=== PATIENT | male | born 1945 | race Caucasian/White ===

== ENCOUNTER 2017-10-22 10:50 | Day surgery (SDC) | payer MEDICARE ==
[~2017-10-22] VITALS: Ht 188 cm; Wt 68.6 kg
[~2017-10-22 10:50] MED LIST: ATOR20TA PO; CARV3.122 PO; GABA-532 PO; HYDR-565 PO; LEVO750T46 PO; PANT-47 PO; SERT100T PO; TRAZ-146 PO
[2017-10-22 11:10] VITALS: BP 119/83
[2017-10-22] MEDS ORDERED: TRAM50TA2 PO (11:45)
[2017-10-22] MEDS ORDERED: SOTA80TA PO (11:46)
== END 2017-10-22 12:30 | disposition home or self-care (01) ==
LOC: GI LAB 10:50
PROVIDERS: ATTEND Specialist
DX: Z46.59 Encounter for fitting and adjustment of other gastrointestinal appliance and device (principal); J44.9 Chronic obstructive pulmonary disease, unspecified; Z95.0 Presence of cardiac pacemaker; Z98.890 Other specified postprocedural states; Z79.899 Other long term (current) drug therapy; Z87.891 Personal history of nicotine dependence; Z88.8 Allergy status to other drugs, medicaments and biological substances
CPT/HCPCS: 99201; A6449

== ENCOUNTER 2020-03-01 15:46 | Outpatient (CLI) | payer MEDICARE ==
[~2020-03-01] VITALS: Ht 188 cm; Wt 56.7 kg
[~2020-03-01 15:46] MED LIST changes: +ALBU8HFA PO; +APIX5TAB3 PO; +ASCO500C15 PO; -CARV3.122 PO; +FERR324T4 PO; +FLUT1AER IH; +HYDR-4353 PO; -HYDR-565 PO; -LEVO750T46 PO; +MULT-1085 PO; -PANT-47 PO; -SERT100T PO; +SOTA80TA PO; -TRAZ-146 PO; +TRAZ-256 PO
[2020-03-01] MEDS ORDERED: albuterol 2.5 MG/3 ML nebule NEB ONE (16:35)
== END 2020-03-01 23:59 | disposition home or self-care (01) ==
LOC: RT 15:46
PROVIDERS: ATTEND Internal Medicine Pulmonary Disease
DX: J45.998 Other asthma (principal); J98.8 Other specified respiratory disorders
CPT/HCPCS: 94060; 94727; 94729; 94760

== ENCOUNTER 2020-06-06 06:19 | Day surgery (SDC) | payer MEDICARE ==
[2020-06-05 12:09] LABS: BASOPHILS # (AUTO) 0.1 X10'3 (0-0.2); BASOPHILS % (AUTO) 0.9 % (0-1); EOSINOPHILS # (AUTO) 0.2 X10'3 (0-0.9); EOSINOPHILS % (AUTO) 3.2 % (0-6); HEMATOCRIT 38.7 % (42.0-52.0); HEMOGLOBIN 12.7 g/dl (14.0-17.9); LYMPHOCYTES # (AUTO) 1.6 X10'3 (1.1-4.8); LYMPHOCYTES % (AUTO) 22.3 % (21-51); MEAN CORPUSCULAR HEMOGLOBIN 30.6 PG (27.0-31.0); MEAN CORPUSCULAR HGB CONC 32.8 g/dL (33.0-36.5); MEAN CORPUSCULAR VOLUME 93.3 FL (78-98); MEAN PLATELET VOLUME 6.5 FL (7.4-10.4); MONOCYTES # (AUTO) 0.5 X10'3 (0-0.9); MONOCYTES % (AUTO) 6.9 % (2-12); NEUTROPHILS # (AUTO) 4.8 X10'3 (1.8-7.7); NEUTROPHILS % (AUTO) 66.7 % (42-75); PLATELET COUNT 220 X10'3 (140-440); RED BLOOD COUNT 4.15 X10'6 (4.70-6.10); RED CELL DISTRIBUTION WIDTH 12.7 % (11.5-14.5); WHITE BLOOD COUNT 7.2 X10'3 (4.5-11.0)
[2020-06-05 12:18] LABS: ANION GAP 8 (8-16); BLOOD UREA NITROGEN 24 MG/DL (7-18); BUN/CREATININE RATIO 23.1 (5.4-32.0); CALCIUM 8.9 MG/DL (8.5-10.1); CHLORIDE 104 MMOL/L (99-107); CREATININE 1.04 MG/DL (0.60-1.10); GLUCOSE 85 MG/DL (70-104); MAGNESIUM 2.3 MG/DL (1.5-2.4); SODIUM 141 MMOL/L (135-145); TOTAL CARBON DIOXIDE 29.1 MMOL/L (24-32); eGFR 70 ML/MIN
[2020-06-05 12:20] LABS: PARTIAL THROMBOPLASTIN TIME 31 SECONDS (22-32)
[2020-06-06] VITALS (11 sets, daily range): BP systolic 85–116; BP diastolic 57–67
[~2020-06-06] VITALS: Ht 188 cm; Wt 60.0 kg
[~2020-06-06 06:19] MED LIST changes: -ASCO500C15 PO; +ASCO500C18 PO
[2020-06-06] MEDS ORDERED: ceFAZolin 2gm in dextrose, iso 50 ML IV ONE ×2 (06:55→07:35)
--- NOTE | 2020-06-06 06:55 | NUR ---
No ABX marked on MD order. Called MD, order received for Ancef 2gms IV x1 dose.
[2020-06-06] MEDS ORDERED: normal saline 1000ml 1,000 ML IV SCH (07:10)
[2020-06-06] MEDS ORDERED: ACET-2615 PO (07:12)
[2020-06-06] MEDS ORDERED: FLUT1AER (07:12)
[2020-06-06] MEDS ORDERED: SERT100T PO (07:12)
[2020-06-06] MEDS ORDERED: TRIA0.252 PO (07:12)
[2020-06-06] MEDS ORDERED: CELE200C PO (07:12)
[2020-06-06] MEDS ORDERED: LIDOcaine 1% W/epiNEPHrine 1:100,000 20ml vial ONE (07:35)
[2020-06-06] MEDS ORDERED: fentaNYL/PF 50MCG/1 ML 2ML syringe ONE ×2 (07:35→09:41)
[2020-06-06] MEDS ORDERED: midazolam 2 mg/2 ml injection ONE ×2 (07:35→10:26)
[2020-06-06] MEDS ORDERED: ceFAZolin 1000mg inj ONE (08:18)
[2020-06-06] MEDS ORDERED: DOPamine 400mg/D5W 250ml 250 ML IV ONE (08:21)
--- NOTE | 2020-06-06 11:10 | NUR ---
Pt returned to room s/p PPM insertion with lead revision. Dopamine gtt initiated in [employer] [place], running at 5mcg/kg/hr.
[2020-06-06] MEDS ORDERED: vancomycin/NS 1 GM ADD-VANTAGE 250 ML X 1 DOSE IV ONE (11:30)
--- NOTE | 2020-06-06 11:41 | NUR ---
Called Dr. PORTER pt feeling nauseous & complaining of pain. Orders received for Cash . Addendum: 06/06/20 at 1144 by Christie Porter RN Pt requested 2 Stephanie nuno MD approved 1 only.
[2020-06-06] MEDS ORDERED: ondansetron/PF 4mg/2ml inj IV ONE (11:45)
[2020-06-06] MEDS ORDERED: HYDROcodone/acetaminophen 5mg/325mg tablet PO PRN (12:05)
--- NOTE | 2020-06-06 12:05 | NUR ---
Dopamine gtt reduced to 2.5mcg/kg/hr. B/P stable as charted.
[2020-06-06] MEDS: HYDROcodone/acetaminophen 10/325mg tab PO PRN ×2 (12:20→15:54)
--- NOTE | 2020-06-06 13:00 | NUR ---
Dopamine gtt discontinued. B/P stable as charted.
--- NOTE | 2020-06-06 15:16 | NUR ---
Called Dr. PORTER re pt's request to be discharged earlier than written order of 1700. MD agreed to discharge pt at 1600 barring any complications. Pt's b/p stable, pt ambulated without difficulty & chest x-ray negative for post-op complications.
== END 2020-06-06 16:00 | disposition home or self-care (01) ==
LOC: SSTAY O 06:19
PROVIDERS: ATTEND Internal Medicine Cardiovascular Disease
DX: T82.110A Breakdown (mechanical) of cardiac electrode, initial encounter (principal); I49.5 Sick sinus syndrome; I25.10 Atherosclerotic heart disease of native coronary artery without angina pectoris; I47.1 Supraventricular tachycardia; Z79.899 Other long term (current) drug therapy; Z79.01 Long term (current) use of anticoagulants; Z95.0 Presence of cardiac pacemaker; Y83.8 Other surgical procedures as the cause of abnormal reaction of the patient, or of later complication, without mention of misadventure at the time of the procedure; Y92.89 Other specified places as the place of occurrence of the external cause
CPT/HCPCS: 33207; 33233; 33234; 36415; 71046; 80048; 83735; 85025; 85610; 85730; 93005; 99152; 99153; C1769; C1785; C1894; C1898; J0690; J1265; J2250; J2405; J3010; J3370; 33216; 33223; 33224; 33228; A4565; A4620; A6258; A6449